=== PATIENT | female | born 1950 | race Caucasian/White ===

== ENCOUNTER → 2017-01-15 | Outpatient (CLI) | payer MEDICARE, OTHER ==
[~2017-01-15] MED LIST: ALPR0.5T6 PO; AMLO10TA2 PO; CALC200T3 PO; CHOL400C11 PO; CITA20TA5 PO; DICY10CA3 PO; HYDR25TA6 PO; HYDR2TAB29 PO; OMEG1CAP23 PO; ONDA8TAB9 PO; ROSU20TA PO
== END | disposition home or self-care (01) ==
LOC: CFH 10:48
PROVIDERS: ATTEND Nurse Practitioner
DX: S92.512A Displaced fracture of proximal phalanx of left lesser toe(s), initial encounter for closed fracture (principal); X58.XXXA Exposure to other specified factors, initial encounter; Y93.89 Activity, other specified; Y92.89 Other specified places as the place of occurrence of the external cause; Y99.8 Other external cause status

== ENCOUNTER → 2017-02-14 | Outpatient (CLI) | payer MEDICARE, OTHER | END | disposition home or self-care (01) | LOC: CFH 11:06 | PROVIDERS: ATTEND Nurse Practitioner | DX: Z12.31 Encounter for screening mammogram for malignant neoplasm of breast (principal); M85.88 Other specified disorders of bone density and structure, other site; N95.8 Other specified menopausal and perimenopausal disorders; Z80.3 Family history of malignant neoplasm of breast | CPT/HCPCS: 77063; 77080; G0202 ==

== ENCOUNTER 2017-06-28 15:36 | Inpatient (IN) | payer MEDICARE, OTHER ==
[~2017-06-28] VITALS: Ht 165.1 cm; Wt 86.5 kg
[2017-06-28] MEDS ORDERED: SODIUM CHLORIDE FLUSH 10ML SYR IVF ONE (16:30)
[2017-06-28] MEDS ORDERED: SODIUM CHLORIDE 0.9% 1,000ML IVBOLUS ONE (16:30)
[2017-06-28 16:40] LABS: HEMATOCRIT 46.6 % (34.6-47.8); HEMOGLOBIN 15.7 g/dL (11.7-16.4); WHITE BLOOD COUNT 10.3 x10^3/uL (3.4-10)
[2017-06-28 17:07] LABS: ASPARTATE AMINO TRANSFERASE 18 U/L (15-37); BLOOD UREA NITROGEN 16 mg/dL (7-18)
[2017-06-28 17:12] LABS: IS PT STATUS REG ER OR PRE ER? YES
[2017-06-28] MEDS ORDERED: ASPIRIN 81 MG TABLET CHEW PO ONE (18:00)
[2017-06-28] MEDS ORDERED: BISACODYL 10 MG SUPP PR PRN (18:30)
[2017-06-28] MEDS ORDERED: POLYETHYLENE GLYCOL 17 GM PACKET PO PRN (18:30)
[2017-06-28] MEDS ORDERED: HYDROmorphone 2MG TABLET PO PRN (18:30)
[2017-06-28] MEDS ORDERED: ONDANSETRON 8 MG TABLET PO PRN (18:30)
[2017-06-28] MEDS ORDERED: NITROGLYCERIN 0.4 MG BOTTLE (25 TABS) SL PRN (18:30)
[2017-06-28] MEDS ORDERED: ASPIRIN 81 MG TABLET CHEW ONE (18:35)
[2017-06-28 19:30] VITALS: BP 134/83
[2017-06-28] MEDS ORDERED: ATORVASTATIN 40 MG TABLET PO SCH (21:00)
[2017-06-28] MEDS ORDERED: CALCIUM CARBONATE 500 MG TAB.CHEW PO SCH (21:00)
[2017-06-28] MEDS: HEPARIN 5,000 UNITS/ML, 1ML SQ SCH (21:49)
[2017-06-28] MEDS: CALCIUM CARBONATE 500 MG TAB.CHEW PO SCH (21:49)
[2017-06-28] MEDS: ACETAMINOPHEN 325 MG TABLET PO PRN (21:49)
[2017-06-28] MEDS: SODIUM CHLORIDE FLUSH 10ML SYR IVF SCH (21:49)
[2017-06-28] MEDS: DICYCLOMINE 10 MG CAPSULE PO SCH (21:50)
[2017-06-28 22:10] VITALS: BP 115/81
[2017-06-28 23:35] LABS: IS PT STATUS REG ER OR PRE ER? NO
[2017-06-29 03:50] VITALS: BP 120/77
[2017-06-29] MEDS: HEPARIN 5,000 UNITS/ML, 1ML SQ SCH ×2 (05:48→14:07)
[2017-06-29 05:54] LABS: IS PT STATUS REG ER OR PRE ER? NO
[2017-06-29] MEDS ORDERED: ASPIRIN 81 MG TABLET EC PO SCH (06:00)
[2017-06-29 06:50] VITALS: BP 127/88
[2017-06-29] MEDS: SODIUM CHLORIDE FLUSH 10ML SYR IVF SCH (08:48)
[2017-06-29] MEDS: CITALOPRAM 20 MG TABLET PO SCH ×2 (08:49→08:57)
[2017-06-29] MEDS: DICYCLOMINE 10 MG CAPSULE PO SCH (08:49)
[2017-06-29] MEDS: OMEGA-3/FISH OIL CAPSULE PO SCH ×2 (08:49→08:58)
[2017-06-29] MEDS: CALCIUM CARBONATE 500 MG TAB.CHEW PO SCH (08:51)
[2017-06-29] MEDS ORDERED: CHOLECALCIFEROL 400 UNITS TABLET PO SCH (09:00)
[2017-06-29] MEDS ORDERED: AMLODIPINE 5 MG TABLET PO SCH ×2 (09:00)
[2017-06-29] MEDS ORDERED: SENNA/DOCUSATE TABLET PO SCH (09:00)
[2017-06-29] MEDS ORDERED: HYDROCHLOROTHIAZIDE 25 MG TABLET PO SCH (09:00)
[2017-06-29] MEDS ORDERED: OMEGA-3/FISH OIL CAPSULE PO SCH (09:00)
[2017-06-29] MEDS ORDERED: REGADENOSON 0.4 MG/5 ML SYRINGE ONE (09:15)
[2017-06-29] MEDS: ACETAMINOPHEN 325 MG TABLET PO PRN (13:16)
[2017-06-29 14:20] VITALS: BP 118/76
[2017-06-29] MEDS ORDERED: ASPI-621 PO (16:14)
[2017-07-08] MEDS ORDERED: LOSA100T6 PO (13:47)
[2017-07-08] MEDS ORDERED: LACT1CAP35 PO (13:47)
[2017-07-08] MEDS ORDERED: vitamin d PO (13:47)
[2017-07-08] MEDS ORDERED: LABE100T3 PO (13:47)
[2017-07-08] MEDS ORDERED: OMEP-110 PO (13:48)
== END 2017-06-29 17:15 | disposition home or self-care (01) | DRG 292 ==
LOC: ED 17:51 → 5SO 19:12 → EDIP 19:12
PROVIDERS: ADMIT Internal Medicine; ATTEND Internal Medicine
DX: I11.0 Hypertensive heart disease with heart failure (principal); K57.92 Diverticulitis of intestine, part unspecified, without perforation or abscess without bleeding; I42.1 Obstructive hypertrophic cardiomyopathy; K91.1 Postgastric surgery syndromes; I20.9 Angina pectoris, unspecified; I50.32 Chronic diastolic (congestive) heart failure; E78.5 Hyperlipidemia, unspecified; I10 Essential (primary) hypertension; Z82.49 Family history of ischemic heart disease and other diseases of the circulatory system; Z85.828 Personal history of other malignant neoplasm of skin; Z86.711 Personal history of pulmonary embolism; Z90.710 Acquired absence of both cervix and uterus; Z90.49 Acquired absence of other specified parts of digestive tract; Z98.51 Tubal ligation status; Z79.899 Other long term (current) drug therapy; K31.89 Other diseases of stomach and duodenum
CPT/HCPCS: 36415; 71010; 78452; 80053; 83880; 84439; 84443; 84484; 85025; 85379; 85610; 85730; 93005; 93017; 93306; 99285; J1644; J2785; A9502; C9898; J7030

== ENCOUNTER 2017-07-09 10:16 | Day surgery (SDC) | payer MEDICARE, OTHER ==
[2017-07-08 13:48] VITALS: BP 138/78
[2017-07-08 15:19] LABS: HEMATOCRIT 43.1 % (34.6-47.8); HEMOGLOBIN 14.7 g/dL (11.7-16.4); WHITE BLOOD COUNT 7.4 x10^3/uL (3.4-10)
[2017-07-08 15:30] LABS: BLOOD UREA NITROGEN 15 mg/dL (7-18)
[2017-07-08 15:33] LABS: ASPARTATE AMINO TRANSFERASE 13 U/L (15-37)
[~2017-07-09] VITALS: Ht 165.1 cm; Wt 82.7 kg
[~2017-07-09 10:16] MED LIST changes: +ASPI-621 PO; +LABE100T3 PO; +LACT1CAP35 PO; +LOSA100T6 PO; +OMEP-110 PO; +vitamin d PO
[2017-07-09] MEDS ORDERED: SODIUM CHLORIDE 0.9% 1,000 ML IV SCH (10:47)
== END 2017-07-09 16:29 ==
LOC: CACL 10:16
PROVIDERS: ATTEND Internal Medicine Cardiovascular Disease
DX: I10 Essential (primary) hypertension (principal); G47.33 Obstructive sleep apnea (adult) (pediatric); I31.3 Pericardial effusion (noninflammatory); E78.5 Hyperlipidemia, unspecified
CPT/HCPCS: 36415; 80053; 85025; 93458; 99156; 99157; C1760; C1769; C1894; Q9967

== ENCOUNTER → 2018-02-16 | Outpatient (CLI) | payer MEDICARE ==
[~2018-02-16] MED LIST changes: -CITA20TA5 PO; +CITA20TA6 PO
== END | disposition home or self-care (01) ==
LOC: CFH 15:49
PROVIDERS: ATTEND Nurse Practitioner
DX: Z12.31 Encounter for screening mammogram for malignant neoplasm of breast (principal)
CPT/HCPCS: 77067

== ENCOUNTER → 2018-04-21 | Outpatient (CLI) | payer MEDICARE ==
[~2018-04-21] MED LIST changes: -AMLO10TA2 PO; +AMLO10TA6 PO; -LABE100T3 PO; +LABE100T6 PO; -LOSA100T6 PO; +LOSA100T7 PO
== END | disposition home or self-care (01) ==
LOC: CFH 09:15
PROVIDERS: ATTEND Otolaryngology
DX: R13.10 Dysphagia, unspecified (principal)
CPT/HCPCS: 74220

== ENCOUNTER → 2018-08-11 | Outpatient (CLI) | payer MEDICARE ==
[~2018-08-11] MED LIST changes: -ASPI-621 PO; +ASPI81TA45 PO
== END | disposition home or self-care (01) ==
LOC: CFH 07:44
PROVIDERS: ATTEND Internal Medicine Cardiovascular Disease
DX: I70.0 Atherosclerosis of aorta (principal); I11.9 Hypertensive heart disease without heart failure; R06.02 Shortness of breath; E78.5 Hyperlipidemia, unspecified
CPT/HCPCS: 93306

== ENCOUNTER 2018-09-18 07:50 | Day surgery (SDC) | payer MEDICARE ==
[~2018-09-18] VITALS: Ht 165.1 cm; Wt 82.6 kg
[~2018-09-18 07:50] MED LIST changes: -AMLO10TA6 PO; +AMLO10TA8 PO; +ASPI-496 PO; +CHOL200052 PO; +DILT240C55 PO; +LACT10SO PO; +LOSA100T14 PO; -LOSA100T7 PO
[2018-09-18] MEDS ORDERED: LABETALOL 5MG/ML, 20ML IV PRN (08:00)
[2018-09-18] MEDS ORDERED: hydrALAzine 20 MG/ML, 1ML IV PRN (08:00)
[2018-09-18] MEDS ORDERED: FENTANYL PF 100 MCG/2ML IV PRN (08:00)
[2018-09-18] MEDS ORDERED: OXYcodone 5 MG/5 ML ORAL.SOL UDC PO PRN (08:00)
[2018-09-18] MEDS ORDERED: HYDROmorphone 2 MG/ML, 1ML IVPush PRN (08:00)
[2018-09-18] MEDS ORDERED: MEPERIDINE/PF 25MG/0.5ML IVPush PRN (08:00)
[2018-09-18] MEDS ORDERED: ONDANSETRON 2MG/ML, 2ML IV PRN (08:00)
[2018-09-18] MEDS ORDERED: ACETAMINOPHEN 325 MG TABLET PO PRN (08:00)
[2018-09-18] MEDS ORDERED: PROMETHAZINE 25 MG/ML, 1ML IV PRN (08:00)
[2018-09-18 08:21] VITALS: BP 152/87
[2018-09-18] MEDS ORDERED: ONABOTULINUMTOXINA 100 UNITS IM ONE (08:30)
[2018-09-18] MEDS ORDERED: LACTATED RINGERS 1,000 ML IV SCH (08:34)
[2018-09-18] MEDS ORDERED: FENTANYL PF 100 MCG/2ML ONE (08:34)
[2018-09-18] MEDS ORDERED: MIDAZOLAM 1 MG/ML, 2ML ONE (08:35)
[2018-09-18] MEDS ORDERED: LIDOCAINE-MPF 1%, 2ML INFIL ONE (09:00)
[2018-09-18] MEDS ORDERED: SIMETHICONE DROPS 40 MG/0.6 ML BOTTLE ONE (10:53)
== END 2018-09-18 12:15 | disposition home or self-care (01) ==
LOC: OUT 07:50
PROVIDERS: ATTEND Internal Medicine Gastroenterology
DX: K31.3 Pylorospasm, not elsewhere classified (principal); K44.9 Diaphragmatic hernia without obstruction or gangrene; K57.10 Diverticulosis of small intestine without perforation or abscess without bleeding; K29.70 Gastritis, unspecified, without bleeding; K31.84 Gastroparesis; B15.9 Hepatitis A without hepatic coma; I10 Essential (primary) hypertension; Z86.718 Personal history of other venous thrombosis and embolism; Z85.828 Personal history of other malignant neoplasm of skin; Z98.890 Other specified postprocedural states
CPT/HCPCS: 43236; 93005; J2250; J3010; J3490; J7120

== ENCOUNTER 2019-01-19 10:41 | Outpatient (CLI) | payer MEDICARE ==
[~2019-01-19 10:41] MED LIST changes: -ROSU20TA PO; +ROSU20TA2 PO
== END 2019-01-19 23:59 | disposition home or self-care (01) ==
LOC: CFH 10:41
PROVIDERS: ATTEND Nurse Practitioner
DX: M47.812 Spondylosis without myelopathy or radiculopathy, cervical region (principal)
CPT/HCPCS: 72040

== ENCOUNTER → 2019-02-01 | Outpatient (CLI) | payer MEDICARE | END | disposition home or self-care (01) | LOC: CFH 13:51 | PROVIDERS: ATTEND Nurse Practitioner | DX: M79.672 Pain in left foot (principal) ==

== ENCOUNTER 2019-02-16 07:41 | Outpatient (CLI) | payer MEDICARE ==
[~2019-02-16 07:41] MED LIST changes: +REGADENOSON 0.4 MG/5 ML SYRINGE ONE
== END 2019-02-16 23:59 | disposition home or self-care (01) ==
LOC: CFH 07:41
PROVIDERS: ATTEND Internal Medicine Cardiovascular Disease
DX: R07.9 Chest pain, unspecified (principal)
CPT/HCPCS: 78452; 93017; A9502; J2785

== ENCOUNTER 2019-02-19 09:58 | Outpatient (CLI) | payer MEDICARE ==
[~2019-02-19 09:58] MED LIST changes: -REGADENOSON 0.4 MG/5 ML SYRINGE ONE
== END 2019-02-19 23:59 | disposition home or self-care (01) ==
LOC: CFH 09:58
PROVIDERS: ATTEND Nurse Practitioner
DX: Z12.31 Encounter for screening mammogram for malignant neoplasm of breast (principal); M85.88 Other specified disorders of bone density and structure, other site
CPT/HCPCS: 77080; 77067

== ENCOUNTER 2019-03-09 07:47 | Outpatient (CLI) | payer MEDICARE | END 2019-03-09 23:59 | disposition home or self-care (01) | LOC: CFH 07:47 | PROVIDERS: ATTEND Internal Medicine Gastroenterology | DX: K21.9 Gastro-esophageal reflux disease without esophagitis (principal); K59.00 Constipation, unspecified; K30 Functional dyspepsia; K31.3 Pylorospasm, not elsewhere classified | CPT/HCPCS: 74245 ==

== ENCOUNTER → 2020-01-07 | Outpatient (CLI) | payer MEDICARE | END | disposition home or self-care (01) | LOC: CFH 06:50 | PROVIDERS: ATTEND Internal Medicine Cardiovascular Disease | DX: I08.0 Rheumatic disorders of both mitral and aortic valves (principal); I10 Essential (primary) hypertension; E78.5 Hyperlipidemia, unspecified | CPT/HCPCS: 93306 ==

== ENCOUNTER → 2020-05-19 | Outpatient (CLI) | payer MEDICARE | END | disposition home or self-care (01) | LOC: EDSTATUS 05-16 08:45 → CFH 11:09 → EDSTATUS 11:30 | PROVIDERS: ATTEND Nurse Practitioner | DX: Z12.31 Encounter for screening mammogram for malignant neoplasm of breast (principal) | CPT/HCPCS: 77067 ==

== ENCOUNTER → 2020-06-15 | Outpatient (CLI) | payer MEDICARE ==
[~2020-06-15] MED LIST changes: +AMLO-211 PO; -AMLO10TA8 PO
== END | disposition home or self-care (01) ==
LOC: CFH 13:08
PROVIDERS: ATTEND Nurse Practitioner
DX: G31.89 Other specified degenerative diseases of nervous system (principal)
CPT/HCPCS: 70450

== ENCOUNTER → 2021-02-06 | Outpatient (CLI) | payer MEDICARE ==
[~2021-02-06] MED LIST changes: -ALPR0.5T6 PO; +ALPR0.5T93 PO; -LACT10SO PO; +LACT10SO2 PO; +OMNIPAQUE 350 MG/ML, 100ML BOTTLE ONE
== END | disposition home or self-care (01) ==
LOC: CFH 11:43
PROVIDERS: ATTEND Internal Medicine Gastroenterology
DX: K57.30 Diverticulosis of large intestine without perforation or abscess without bleeding (principal); K44.9 Diaphragmatic hernia without obstruction or gangrene; K57.10 Diverticulosis of small intestine without perforation or abscess without bleeding; R11.0 Nausea; R10.13 Epigastric pain; I51.7 Cardiomegaly; Q63.2 Ectopic kidney; M51.37 Other intervertebral disc degeneration, lumbosacral region; Z90.49 Acquired absence of other specified parts of digestive tract
CPT/HCPCS: 74177; Q9967